=== PATIENT | male | born 1955 | race Caucasian/White ===

== ENCOUNTER 2023-11-07 11:23 | Emergency (ER) | payer MEDICARE, SELFPAY ==
[2023-11-07 11:41] VITALS: BP 128/76; PULSE 72; RESP 16; TEMP 36.8; O2SAT 98
--- NOTE | 2023-11-07 12:27 | ED.SKABFB ---
HPI - Skin/Abscess/Foreign Bdy General Chief complaint: Skin/Abscess/Foreign Body Stated complaint: bee sting on 11/05/2023 back right shoulder,red Time Seen by Provider: 11/07/23 12:28 Source: patient, RN notes reviewed and old records reviewed Mode of arrival: ambulatory Limitations: no limitations History of Present Illness HPI narrative: Patient presents with complaints of redness, itching, swelling to right chest wall. He reports that he was stung by 2 wasp 2 days ago. He states that the site has been getting more red and has been increasing in size. He denies any pain. He denies any fever, chills, sweats. Denies any drainage from the sites. Denies other injury and trauma. Voices no other concerns or complaints at this time. He has been taking Benadryl with minimal results Related Data Home Medications Medication Instructions Recorded Confirmed losartan 50 mg tablet 50 mg PO DAILY 11/07/23 11/07/23 potassium chloride 10 mEq 10 meq PO DAILY 11/07/23 11/07/23 tablet,extended release triamterene 75 1 tablet PO DAILY 11/07/23 11/07/23 mg-hydrochlorothiazide 50 mg tablet Allergies Allergy/AdvReac Type Severity Reaction Status Date / Time No Known Allergies Allergy Verified 11/07/23 12:40 Review of Systems Review of Systems: All systems reviewed & are unremarkable except as noted in HPI and below Constitutional: Constitutional: Reports no additional constitutional complaints ENT: Reports system reviewed and no additional complaints, except as documented Cardiovascular: Cardiovascular: Reports no additional cardiovascular complaints Respiratory: Respiratory: Reports no additional respiratory complaints Gastrointestinal: Gastrointestinal: Reports no additional gastrointestinal complaints Integumentary/Breasts: Skin/Breast: Reports system reviewed and no additional complaints, except as docu, Reports as per HPI, Reports pruritus, Reports erythema and Reports skin swelling PMFSH Comments At the time of my signature, I reviewed and agree with the nursing past medical, surgical, social, and family history. There is no relevant family history pertinent to the patient complaint. Exam Const: General: cooperative, no acute distress, alert and awake Orientation/consciousness: oriented to person, oriented to place and oriented to time HENMT: Head: normal to inspection Resp: Effort & Inspection: normal respiratory effort and able to speak in complete sentences Auscultation: clear to auscultation bilaterally, no crackles, no rales, no rhonchi and no wheezes Cardio: Palpation: normal PMI Rate: regular rate Rhythm: regular rhythm Heart sounds: S1 normal heart sound present and S2 normal heart sound present Skin: Full body images: 1. 23 cm x 14 cm red raised area that extends to back. Warm to touch Neuro: General: oriented to person, oriented to place and oriented to time Cranial nerves: Yes CN's II-XII intact bilaterally Psych: Appearance: grossly normal Thought process: Normal thought process present Insight: Good insight present (Psych) Judgement: Good judgement present (Psych) Course Course Level of Care: Express Care Visit Vital Signs Vital signs: Vital Signs Temperature 98.2 F 11/07/23 11:41 Pulse Rate 72 11/07/23 11:41 Respiratory Rate 16 11/07/23 11:41 Blood Pressure 128/76 11/07/23 11:41 Pulse Oximetry 98 11/07/23 11:41 Oxygen Delivery Room Air 11/07/23 11:41 Temperature 98.2 F 11/07/23 11:41 Pulse Rate 72 11/07/23 11:41 Respiratory Rate 16 11/07/23 11:41 Blood Pressure 128/76 11/07/23 11:41 Pulse Oximetry 98 11/07/23 11:41 Oxygen Delivery Room Air 11/07/23 11:41 Reviewed MDM - Skin/Abscess/Foreign Bdy MDM Narrative Medical decision making narrative: Patient with large reaction to insect sting probably from has both in allergic an infectious component. Treat with prednisone and doxycycline. Patient advised to follow-up with primary
== END 2023-11-07 12:45 | disposition home or self-care (01) ==
PROVIDERS: Emergency Provider Nurse Practitioner Family; PCP Family Medicine
DX: T63.461A Toxic effect of venom of wasps, accidental (unintentional), initial encounter (principal); I10 Essential (primary) hypertension
CPT/HCPCS: 99213; G0463